=== PATIENT | female | born 1965 | race Caucasian/White ===

== ENCOUNTER 2018-04-11 09:10 | Emergency (ER) | payer MEDICAID, OTHER ==
[2018-04-11 09:10] VITALS: BMI 29.8
[2018-04-11 09:22] VITALS: BP 139/84; PULSE 79; RESP 20; TEMP 98.3; O2SAT 97
--- NOTE | 2018-04-11 10:40 | ED PDOC ---
HPI: Back Time Seen by Provider: 04/11/18 09:33 Chief Complaint (Nursing): Back Pain History Per: Patient History/Exam Limitations: no limitations Onset/Duration Of Symptoms: Days (2) Current Symptoms Are (Timing): Still Present Quality Of Discomfort: Dull Severity: Moderate Pain Scale Rating Of: 4 Previous Symptoms: Back Pain Associated Symptoms: None Exacerbating Factor(s): Turning, Movement, Standing Additional History Per: Patient Additional Complaint(s): Patient presenting with lower back pain for 2 days. Right sided constant lower back pain radiating to right upper leg. Worse with walking and movement. No fever, no urinary problems, no numbness/weakness. - Risk Factors AAA Risk Factors: Neg: Hypertension, Prior AAA Past Medical History Reviewed: Historical Data, Nursing Documentation, Vital Signs Vital Signs: Last Vital Signs Temp 98.3 F 04/11/18 09:21 Pulse 79 04/11/18 09:21 Resp 20 04/11/18 09:21 BP 139/84 04/11/18 09:21 Pulse Ox 97 04/11/18 09:21 - Medical History PMH: No Chronic Diseases Denies: Chronic Kidney Disease - Surgical History Other surgeries: sinuses - Family History Family History: States: Unknown Family Hx - Home Medications Home Medications: Ambulatory Orders Medication Instructions Recorded Cyclobenzaprine [Cyclobenzaprine 10 mg PO Q8 PRN #12 tab 05/27/16 HCl] Ibuprofen [Motrin] 600 mg PO TID PRN #30 tab 05/27/16 traMADol [Ultram] 50 mg PO Q8 PRN #12 tab 05/27/16 Cyclobenzaprine [Cyclobenzaprine 10 mg PO TID #15 tab 04/11/18 HCl] Naproxen 500 mg PO BID #20 tab 04/11/18 - Allergies Allergies/Adverse Reactions: Allergies Allergy/AdvReac Type Severity Reaction Status Date / Time No Known Allergies Allergy Verified 05/27/16 15:24 Review of Systems ROS Statement: Except As Marked, All Systems Reviewed And Found Negative Physical Exam - Reviewed Nursing Documentation Reviewed: Yes Vital Signs Reviewed: Yes - Physical Exam Appears: Positive for: Non-toxic, No Acute Distress Head Exam: Positive for: ATRAUMATIC, NORMAL INSPECTION Skin: Positive for: Warm, Dry Eye Exam: Positive for: EOMI Neck: Positive for: Painless ROM, Supple Cardiovascular/Chest: Positive for: Regular Rate, Rhythm Gastrointestinal/Abdominal: Positive for: Soft. Negative for: Tenderness Back: Positive for: Muscle Spasm, Other (right lower back paraspinal tenderness , SLR positive). Negative for: L CVA Tenderness, R CVA Tenderness Extremity: Positive for: Normal ROM Neurologic/Psych: Positive for: Alert, Oriented - ECG O2 Sat by Pulse Oximetry: 97 - Progress Re-evaluation Time: 12:26 Condition: Re-examined, Improved Medical Decision Making Medical Decision Making: Impression Lower back pain Diff include sciatica, lumbar radiculopathy Disposition - Clinical Impression Clinical Impression: Back pain - Patient ED Disposition Is Patient to be Admitted: No Counseled Patient/Family Regarding: Studies Performed, Diagnosis, Need For Followup - Disposition Referrals: Carina Major MD [Primary Care Provider] - Disposition: Routine/Home Disposition Time: 12:26 Condition: IMPROVED Additional Instructions: Take your medications as instructed. Follow up with your PCP in 2-3 days. Prescriptions: Cyclobenzaprine [Cyclobenzaprine HCl] 10 mg PO TID #15 tab Naproxen 500 mg PO BID #20 tab Instructions: Low Back Pain (DC) Print Language: [place]
[2018-04-11] MEDS ORDERED: Oxycodone/Acetaminophen 5/325 mg Tab ONE (11:55)
[2018-04-11] MEDS: Oxycodone/Acetaminophen 5/325 mg Tab PO ONE (11:56)
== END 2018-04-11 12:35 | disposition home or self-care (01) ==
LOC: H.ER 09:10 → SUPCPDRO 09:10 → H.ER 12:35
DX: M54.9 Dorsalgia, unspecified (principal); I10 Essential (primary) hypertension
CPT/HCPCS: 96372; 99283; J1885